=== PATIENT | female | born 1960 | race American Indian/Alaskan Native ===

== ENCOUNTER 2019-11-29 14:40 | Emergency (ER) | payer OTHER, BC ==
[2019-11-29] MEDS ORDERED: levETIRAcetam 1000 MG/NS 0.75% 1,000 MG/100 ML BAG IV ONE (15:35)
[2019-11-29 16:09] VITALS: BP 115/80
[2019-11-29 16:55] LABS: Albumin 2.7 g/dL (3.9-5); Calcium 8.2 mg/dL (8.4-10.2)
[2019-11-29] MEDS ORDERED: HYDROcodone/ACETAMINOPHEN 5-325 MG TAB ONE (17:29)
[2019-11-29] MEDS ORDERED: HYDROmorphone 1 MG/1 ML INJ IV ONE (17:31)
[2019-11-29] MEDS ORDERED: HYDROmorphone 1 MG/1 ML INJ ONE (17:31)
--- NOTE | 2019-11-29 17:39 | Emergency Department Report ---
ED Seizure HPI - General Chief Complaint: Seizure Stated Complaint: SEIZURE Time Seen by Provider: 11/29/19 15:35 Source: patient, EMS Mode of arrival: Stretcher Limitations: No Limitations - History of Present Illness Initial Comments: Patient is a 59-year-old F [place] female has a past medical history of hypertension end-stage renal disease who is presenting status post seizure. Patient was at dialysis and had been there for approximately 2 hours when she had some tonic-clonic activity. Patient states she felt fine before going to dialysis and she has never had a seizure before. Patient states she has had no recent headaches head trauma. There is been no nausea vomiting or diarrhea. Patient did have a abdominal surgery for diverticulitis but she has had no complications thus far. Patient currently back to her baseline. - Related Data Previous Rx's Medication Instructions Recorded Last Taken Type levETIRAcetam [Keppra TAB] 500 mg PO BID #60 tablet 11/29/19 Unknown Rx Allergies Allergy/AdvReac Type Severity Reaction Status Date / Time DONG Inhibitors Allergy Rash Verified 11/29/19 16:20 erythromycin base Allergy Swelling Verified 11/29/19 16:20 gentamicin Allergy Swelling Verified 11/29/19 16:20 peanut Allergy Swelling Verified 11/29/19 16:20 Penicillins Allergy Swelling Verified 11/29/19 16:20 Sulfa (Sulfonamide Allergy Rash Verified 11/29/19 16:20 Antibiotics) sweet potato Allergy Rash Verified 11/29/19 16:20 ED Review of Systems ROS: Stated complaint: SEIZURE Other details as noted in HPI Comment: All other systems reviewed and negative ED Past Medical Hx - Past Medical History Previous Medical History?: Yes Hx Hypertension: Yes Hx CVA: Yes (x 2) Hx Heart Attack/AMI: Yes Hx Renal Disease: Yes Additional medical history: diverticulitis - Surgical History Past Surgical History?: Yes Additional Surgical History: colostomy. dialysis graft left upper arm - Social History Smoking Status: Never Smoker Substance Use Type: None - Medications Home Medications: Home Medications Medication Instructions Recorded Confirmed Last Taken Type levETIRAcetam [Keppra TAB] 500 mg PO BID #60 tablet 11/29/19 Unknown Rx ED Physical Exam - General Limitations: No Limitations General appearance: alert, in no apparent distress - Head Head exam: Present: atraumatic, normocephalic - Eye Eye exam: Present: normal appearance - ENT ENT exam: Present: normal orophraynx, mucous membranes moist - Neck Neck exam: Present: normal inspection - Respiratory Respiratory exam: Present: normal lung sounds bilaterally. Absent: respiratory distress, wheezes, rales, rhonchi - Cardiovascular Cardiovascular Exam: Present: regular rate, normal rhythm. Absent: systolic murmur, diastolic murmur, rubs, gallop - GI/Abdominal GI/Abdominal exam: Present: soft, normal bowel sounds - Extremities Exam Extremities exam: Present: normal inspection - Back Exam Back exam: Present: normal inspection - Neurological Exam Neurological exam: Present: alert, oriented X3, CN II-XII intact. Absent: motor sensory deficit - Psychiatric Psychiatric exam: Present: normal affect, normal mood - Skin Skin exam: Present: warm, dry, intact, normal color. Absent: rash ED Course Vital Signs 11/29/19 11/29/19 15:55 16:45 Temperature 98.6 F Pulse Rate 73 Respiratory 22 18 Rate Blood Pressure 115/80 O2 Sat by Pulse 95 100 Oximetry ED Medical Decision Making - Lab Data Result diagrams: 11/29/19 16:18 Lab Results 11/29/19 Range/Units 16:18 Sodium 135 L (137-145) mmol/L Potassium 3.5 L (3.6-5.0) mmol/L Chloride 94.3 L (98-107) mmol/L Carbon Dioxide 28 (22-30) mmol/L Anion Gap 16 mmol/L BUN 8 (7-17) mg/dL Creatinine 3.3 H (0.6-1.2) mg/dL Estimated GFR 14 ml/min BUN/Creatinine Ratio 2 % Glucose 116 H (65-100) mg/dL Calcium 8.2 L (8.4-10.2) mg/dL Total Bilirubin 0.30 (0.1-1.2) mg/dL AST 15 (5-40) units/L ALT 6 L (7-56) units/L Alkaline Phosphatase 107 (35-129) units/L Total Protein 6.9 (6.3-8.2) g/dL Albumin 2.7 L (3.9-5) g/dL Albumin/Globulin Ratio 0.6 % - Medical Decision Making Electrolytes are within normal limits. Does not appear to the patient acutely needs any more dialysis. Her sodium was normal. Patient was loaded with a dose of Keppra and should be sent home with Keppra follow-up with neuro Critical care attestation.: If time is entered above; I have spent that time in minutes in the direct care of this critically ill patient, excluding procedure time. ED Disposition Clinical Impression: New onset seizure Disposition: DC-01 TO HOME OR SELFCARE Is pt being admited?: No Does the pt Need Aspirin: No Condition: Stable Instructions: New-Onset Seizure in Adults (ED) Referrals: ELLIOT ZARAGOZA MD [Staff Physician] - 3-5 Days Time of Disposition: 17:39
[2019-11-29] MEDS: oxyCODONE /ACETAMINOPHEN 5-325MG TAB PO ONE ×2 (17:41→18:09)
[2019-11-29] MEDS ORDERED: HYDROcodone/ACETAMINOPHEN 5-325 MG TAB PO ONE (18:07)
== END 2019-11-29 18:54 | disposition home or self-care (01) ==
LOC: ED 14:40
DX: G40.909 Epilepsy, unspecified, not intractable, without status epilepticus (principal); I10 Essential (primary) hypertension; I25.2 Old myocardial infarction; Z86.73 Personal history of transient ischemic attack (TIA), and cerebral infarction without residual deficits; Z98.890 Other specified postprocedural states; Z79.899 Other long term (current) drug therapy
CPT/HCPCS: 36415; 80048; 80053; 93005; 96374; 96375; 99284; J1170; J1953